=== PATIENT | female | born 2000 | race African-American/Black ===

== ENCOUNTER 2024-08-25 00:56 | Emergency (ER) | payer SELFPAY ==
[2024-08-25] MEDS ORDERED: Ibuprofen 200 MG TAB ONE (01:35)
[2024-08-25 02:04] LABS: Bilirubin Neg (Negative); Blood, Urine 25 (Negative); Clarity Slightly Cloudy (Clear); Glucose, Urine (Dipstick) Normal (Negative); Ketone, Urine Negative (Negative); Leukocyte Negative (Negative); Nitrite Negative (Negative); Protein, Urine (Dipstick) 15 mg/dl (Neg-Trace); Specific Gravity, Urine 1.025 (1.005-1.030); Urobilinogen Normal mg/dL (Less than 2)
[2024-08-25 02:12] LABS: Pregnancy Test - Urine (BHCG) Negative (Negative); Pregu Control Background? CLEAR/WHITE (CLR/WHITE); Pregu Control Bar Appear? YES (CONTROL BAR); Specific Gravity 1.025 (1.002-1.036)
[2024-08-25 02:14] LABS: Bacteria/HPF 1+ HPF (None Seen); CAUTI Indications for Culture Pelvic or flank pain; RBC/HPF 0-3 HPF (0-3); WBC/HPF 0-3 HPF (0-3)
[2024-08-25 02:15] LABS: Mucous/LPF 1+ LPF (<2+)
[2024-08-25 02:16] LABS: Urine Culture Reflex No No
== END 2024-08-25 03:22 | disposition home or self-care (01) ==
LOC: CSHERS 00:56
DX: B34.9 Viral infection, unspecified (principal); Z55.6 Problems related to health literacy
CPT/HCPCS: 81001; 81025; 87428; 99284

== ENCOUNTER 2025-06-08 13:11 | Day surgery (SDC) | payer OTHER ==
[2025-06-08 13:46] VITALS: BMI 22.6
[2025-06-08] MEDS ORDERED: hydrALAZINE 20 MG/ML VIAL SLOW IVP PRN (14:21)
[2025-06-08 15:04] LABS: Glucose, Urine (Dipstick) Normal (Negative); Leukocyte 500 (Negative); Protein, Urine (Dipstick) 15 mg/dl (Neg-Trace); Specific Gravity, Urine 1.010 (1.005-1.030)
[2025-06-08 15:15] LABS: RBC/HPF 0-3 HPF (0-3); Yeast-Budding 1+ HPF (None Seen)
[2025-06-08 15:16] LABS: Bacteria/HPF 2+ HPF (None Seen); Mucous/LPF 3+ LPF (<2+)
[2025-06-08] MEDS: Acetaminophen 500 MG TAB PO SCH (15:44)
== END 2025-06-08 16:50 | disposition home or self-care (01) ==
LOC: CSHLD/OP 13:11
PROVIDERS: ATTEND Obstetrics & Gynecology
DX: O47.03 False labor before 37 completed weeks of gestation, third trimester (principal); O99.891 Other specified diseases and conditions complicating pregnancy; R51.9 Headache, unspecified; O23.593 Infection of other part of genital tract in pregnancy, third trimester; N89.8 Other specified noninflammatory disorders of vagina; B96.89 Other specified bacterial agents as the cause of diseases classified elsewhere; O99.013 Anemia complicating pregnancy, third trimester; D57.3 Sickle-cell trait; O98.813 Other maternal infectious and parasitic diseases complicating pregnancy, third trimester; B37.9 Candidiasis, unspecified; Z3A.36 36 weeks gestation of pregnancy; Z79.899 Other long term (current) drug therapy
CPT/HCPCS: 81003; 81015; 87480; 87510; 87660; 99285

== ENCOUNTER 2025-06-27 15:53 | Day surgery (SDC) | payer OTHER ==
[2025-06-27] MEDS ORDERED: hydrALAZINE 20 MG/ML VIAL SLOW IVP PRN (16:43)
[2025-06-27 16:47] VITALS: BMI 23.6
[2025-06-27] MEDS: Acetaminophen 500 MG TAB PO SCH (17:12)
== END 2025-06-27 17:35 | disposition home or self-care (01) ==
LOC: CSHLD/OP 15:53
PROVIDERS: ATTEND Obstetrics & Gynecology
DX: O47.03 False labor before 37 completed weeks of gestation, third trimester (principal); Z3A.28 28 weeks gestation of pregnancy; Z79.899 Other long term (current) drug therapy
CPT/HCPCS: 99283

== ENCOUNTER 2025-07-04 16:03 | Day surgery (SDC) | payer OTHER ==
[2025-07-04] MEDS ORDERED: hydrALAZINE 20 MG/ML VIAL SLOW IVP PRN (17:12)
[2025-07-04] MEDS ORDERED: Ondansetron PF 4 MG/2 ML Vial IVP SCH (18:00)
== END 2025-07-04 19:30 | disposition home or self-care (01) ==
LOC: CSHLD/OP 16:03
PROVIDERS: ATTEND Family Medicine
DX: O47.1 False labor at or after 37 completed weeks of gestation (principal); O99.891 Other specified diseases and conditions complicating pregnancy; R11.0 Nausea; O23.593 Infection of other part of genital tract in pregnancy, third trimester; N89.8 Other specified noninflammatory disorders of vagina; Z3A.39 39 weeks gestation of pregnancy; Z79.899 Other long term (current) drug therapy

== ENCOUNTER 2025-07-07 18:00 | Inpatient (IN) | payer OTHER ==
[2025-07-07] MEDS ORDERED: hydrALAZINE 20 MG/ML VIAL SLOW IVP PRN (22:14)
[2025-07-07] MEDS ORDERED: Lidocaine 1% (PF) 30 ML VIAL SC PRN (22:14)
[2025-07-07] MEDS ORDERED: Oxytocin 30 units/NS 500 ML 500 ML IV SCH ×3 (22:15)
[2025-07-07] MEDS ORDERED: Ibuprofen 800 MG TAB PO PRN (22:15)
[2025-07-07] MEDS ORDERED: Tranexamic Acid 1,000 MG/10 ML VIAL IVP PRN (22:15)
[2025-07-07] MEDS ORDERED: Methylergonovine 0.2 MG/ML VIAL IM PRN (22:15)
[2025-07-07] MEDS ORDERED: Diphenoxylate HCl/Atropine Tablet PO PRN ×2 (22:15)
[2025-07-07] MEDS ORDERED: Carboprost 250 MCG/ML AMP IM PRN (22:15)
[2025-07-07] MEDS: Acetaminophen 500 MG TAB PO PRN (23:09)
[2025-07-07 23:16] LABS: Hematocrit 30.6 % (34.9-44.5); Hemoglobin 9.6 g/dL (12.0-15.5); Mean Corpuscular Hemoglobin 24.1 pg (27.0-33.0); Mean Corpuscular Volume 76.7 fL (81.6-98.3); Platelet Count 490 10x3/uL (150-450); Red Blood Cell (RBC) Count 3.99 10x6/uL (3.90-5.03); White Blood Cell (WBC) Count 11.17 10x3/uL (3.5-10.5)
[2025-07-07 23:51] LABS: Syphilis Antibody Index 0.07 S/CO (<1.00 Non-Reactive)
[2025-07-07 23:52] LABS: Hep B Surf Ag - L&D Non-Reactive S/CO (NonReactive)
[2025-07-08] MEDS: Ondansetron PF 4 MG/2 ML Vial IVP PRN ×2 (05:37→23:25)
[2025-07-08] MEDS: Acetaminophen 500 MG TAB PO SCH (06:10)
[2025-07-08] MEDS ORDERED: Ondansetron PF 4 MG/2 ML Vial IVP PRN ×2 (12:34→14:06)
[2025-07-08] MEDS ORDERED: diphenhydrAMINE 50 MG/ML VIAL IVP PRN ×2 (12:34→14:06)
[2025-07-08] MEDS ORDERED: Communication Order-Pharmacy FS SCH ×2 (12:45→14:15)
[2025-07-08] MEDS ORDERED: Bicitra 30 ML UDCUP PO PRN (13:32)
[2025-07-08] MEDS ORDERED: Famotidine/PF 20 mg/2ml Vial SLOW IVP PRN (13:32)
[2025-07-08] MEDS: fentaNYL 2 mcg/Ropivacaine 0.2% Epidural 100 ML CADD EPIDURAL SCH (13:39)
[2025-07-08] MEDS ORDERED: Meperidine HCl/PF 25 MG (1 mL) VIAL SLOW IVP PRN (14:06)
[2025-07-08] MEDS ORDERED: Ketorolac Tromethamine 30 MG (1 mL) VIAL IVP SCH (14:15)
[2025-07-08] MEDS ORDERED: hydrALAZINE 20 MG/ML VIAL SLOW IVP PRN (14:19)
[2025-07-08] MEDS ORDERED: Simethicone Chewable 80 MG TAB PO PRN (14:19)
[2025-07-08] MEDS ORDERED: Lanolin Ointment 7 GM TUBE TOP PRN (14:19)
[2025-07-08 14:25] LABS: Analyzer IN Cardio CS NICU
[2025-07-08 14:27] LABS: Analyzer IN Cardio CS NICU; pH (Cord, venous) 7.273 (7.250-7.350)
[2025-07-08] MEDS: Ketorolac Tromethamine 30 MG (1 mL) VIAL IVP PRN (16:30)
[2025-07-08] MEDS: Dexamethasone 10 MG/ML VIAL ONE (17:42)
[2025-07-08] MEDS: fentaNYL/Ropivacaine Epidural 100 ML ONE (17:42)
[2025-07-08] MEDS: Oxytocin 10 UNITS/ML VIAL ONE (17:43)
[2025-07-08] MEDS: Lidocaine 2% MPF 10 ML AMP (For Epidural Use) ONE (17:43)
[2025-07-08] MEDS: CEFAZOLIN 2 GM VIAL ONE (17:43)
[2025-07-08] MEDS: PHENYLEPHRINE-NS 100 MCG/ML 10 ML SYRINGE ONE (17:43)
[2025-07-08] MEDS: Ondansetron PF 4 MG/2 ML Vial ONE (17:43)
[2025-07-08] MEDS: Erythromycin Base 0.5% Oint 1 GM TUBE ONE (17:44)
[2025-07-08] MEDS: Boostrix 0.5 ML (Tdap) VIAL (>/=7 yrs of age) IM ONE (17:50)
[2025-07-08] MEDS: Ferrous Sulfate 325 MG TAB PO SCH (21:51)
[2025-07-09] MEDS ORDERED: HYDROcodone/Acetaminophen 10/325 mg Tablet PO PRN (02:15)
[2025-07-09 05:55] LABS: Hematocrit 24.9 % (34.9-44.5); Hemoglobin 7.6 g/dL (12.0-15.5); Mean Corpuscular Hemoglobin 23.6 pg (27.0-33.0); Mean Corpuscular Volume 77.3 fL (81.6-98.3); Platelet Count 351 10x3/uL (150-450); Red Blood Cell (RBC) Count 3.22 10x6/uL (3.90-5.03); White Blood Cell (WBC) Count 15.92 10x3/uL (3.5-10.5)
[2025-07-09] MEDS: Iron Sucrose Complex 500 MG in Sodium Chloride 0.9% 250 ML 250 ML IVPB SCH (11:09)
[2025-07-09] MEDS: Acetaminophen 500 MG TAB PO SCH (11:10)
[2025-07-09] MEDS: HYDROcodone/Acetaminophen 10/325 mg Tablet PO PRN (12:00)
[2025-07-09] MEDS ORDERED: Lidocaine 2% MPF 10 ML AMP (For Epidural Use) ONE (13:50)
[2025-07-09] MEDS: Acetaminophen 325 MG TAB PO PRN (19:58)
[2025-07-09] MEDS: Ibuprofen 800 MG TAB PO PRN (21:14)
[2025-07-10 04:19] LABS: #Basophils Less than 0.03 10x3/uL (0.0-0.2); #Eosinophils 0.05 10x3/uL (0.0-0.5); #Monocytes 0.88 10x3/uL (0.0-1.1); #Neutrophils 13.31 10x3/uL (1.5-8.4); %Basophils 0.1 % (0.0-2.0); %Eosinophils 0.3 % (0.0-6.0); %Lymphocytes 13.4 % (18.0-47.0); %Monocytes 5.3 % (0.0-10.0); %Neutrophils 79.8 % (40.0-75.0); Hematocrit 24.3 % (34.9-44.5); Hemoglobin 7.4 g/dL (12.0-15.5); Mean Corpuscular Hemoglobin 23.9 pg (27.0-33.0); Mean Corpuscular Volume 78.4 fL (81.6-98.3); Platelet Count 348 10x3/uL (150-450); Red Blood Cell (RBC) Count 3.10 10x6/uL (3.90-5.03); White Blood Cell (WBC) Count 16.69 10x3/uL (3.5-10.5)
[2025-07-11 07:03] LABS: #Basophils Less than 0.03 10x3/uL (0.0-0.2); #Eosinophils 0.07 10x3/uL (0.0-0.5); #Monocytes 1.08 10x3/uL (0.0-1.1); #Neutrophils 13.86 10x3/uL (1.5-8.4); %Basophils 0.1 % (0.0-2.0); %Eosinophils 0.4 % (0.0-6.0); %Lymphocytes 13.7 % (18.0-47.0); %Monocytes 6.1 % (0.0-10.0); %Neutrophils 77.8 % (40.0-75.0); Hematocrit 22.4 % (34.9-44.5); Hemoglobin 6.9 g/dL (12.0-15.5); Mean Corpuscular Hemoglobin 24.4 pg (27.0-33.0); Mean Corpuscular Volume 79.2 fL (81.6-98.3); Platelet Count 368 10x3/uL (150-450); Red Blood Cell (RBC) Count 2.83 10x6/uL (3.90-5.03); White Blood Cell (WBC) Count 17.80 10x3/uL (3.5-10.5)
[2025-07-11 08:29] LABS: Glucose, Urine (Dipstick) Normal (Negative); Leukocyte Negative (Negative); Protein, Urine (Dipstick) Negative (Neg-Trace); Specific Gravity, Urine 1.010 (1.005-1.030)
[2025-07-11 10:13] LABS: Bacteria/HPF None Seen HPF (None Seen); CAUTI Indications for Culture Pelvic or flank pain; RBC/HPF 0-3 HPF (0-3); Urine Culture Reflex No No; WBC/HPF 0-3 HPF (0-3)
[2025-07-11 15:45] VITALS: TEMP 98.1
[2025-07-11 15:46] VITALS: BP 121/65
[2025-07-11 16:52] LABS: Hematocrit 27.9 % (34.9-44.5); Hemoglobin 8.7 g/dL (12.0-15.5); Mean Corpuscular Hemoglobin 25.8 pg (27.0-33.0); Mean Corpuscular Volume 82.8 fL (81.6-98.3); Platelet Count 378 10x3/uL (150-450); Red Blood Cell (RBC) Count 3.37 10x6/uL (3.90-5.03); White Blood Cell (WBC) Count 18.66 10x3/uL (3.5-10.5)
== END 2025-07-11 17:15 | disposition home or self-care (01) | DRG 787 ==
LOC: UNDOADMIN 20:55 → EDUNIT# 20:55 → CSHNSY 20:55 → CSHLD 20:55 → CSHPP 07-08 17:30
PROVIDERS: ADMIT Obstetrics & Gynecology; ATTEND Family Medicine
PROC: 10D00Z1 Extraction of Products of Conception, Low, Open Approach (ICD-10-PCS; principal; 2025-07-08)
PROC: 0U7C7ZZ Dilation of Cervix, Via Natural or Artificial Opening (ICD-10-PCS; 2025-07-08)
PROC: 30233N1 Transfusion of Nonautologous Red Blood Cells into Peripheral Vein, Percutaneous Approach (ICD-10-PCS; 2025-07-11)
DX: O48.0 Post-term pregnancy (principal); O99.835 Other infection carrier state complicating the puerperium; O43.893 Other placental disorders, third trimester; Z3A.40 40 weeks gestation of pregnancy; Z37.0 Single live birth; O99.02 Anemia complicating childbirth; D64.9 Anemia, unspecified; D57.3 Sickle-cell trait; D72.829 Elevated white blood cell count, unspecified
CPT/HCPCS: 36415; 36430; 51702; 81001; 82805; 85025; 85027; 86780; 86850; 86900; 86901; 87340; J0665; J1100; J1756; J1885; J2250; J2274; J2405; J2590; J3010; J3105; J7050; J7120; P9016

== ENCOUNTER 2025-09-07 22:54 | Emergency (ER) | payer OTHER ==
[2025-09-07 23:58] LABS: Glucose, Urine (Dipstick) Normal (Negative); Leukocyte 500 (Negative); Protein, Urine (Dipstick) 15 mg/dl (Neg-Trace); Specific Gravity, Urine 1.010 (1.005-1.030)
[2025-09-08] LABS: #Basophils 0.03 10x3/uL (0.0-0.2); #Eosinophils 0.09 10x3/uL (0.0-0.5); #Monocytes 0.47 10x3/uL (0.0-1.1); #Neutrophils 3.54 10x3/uL (1.5-8.4); %Basophils 0.5 % (0.0-2.0); %Eosinophils 1.4 % (0.0-6.0); %Lymphocytes 34.5 % (18.0-47.0); %Monocytes 7.4 % (0.0-10.0); %Neutrophils 56.0 % (40.0-75.0); Hematocrit 34.7 % (34.9-44.5); Hemoglobin 11.3 g/dL (12.0-15.5); Mean Corpuscular Hemoglobin 27.5 pg (27.0-33.0); Mean Corpuscular Volume 84.4 fL (81.6-98.3); Platelet Count 434 10x3/uL (150-450); Red Blood Cell (RBC) Count 4.11 10x6/uL (3.90-5.03); White Blood Cell (WBC) Count 6.32 10x3/uL (3.5-10.5)
[2025-09-08 00:11] LABS: RBC/HPF Greater than 50 HPF (0-3)
[2025-09-08 00:12] LABS: Bacteria/HPF Rare-Few HPF (None Seen); CAUTI Indications for Culture Acute Hematuria; Mucous/LPF 1+ LPF (<2+)
[2025-09-08 00:12] LABS: BHCG - Serum POSITIVE (NEGATIVE); Pregs Control Background? CLEAR/WHITE (CLR/WHITE); Pregs Control Bar Appear? YES (CONTROL BAR)
[2025-09-08 00:13] LABS: Urine Culture Reflex No No
[2025-09-08 00:16] LABS: ALT (SGPT) 7 U/L (Less than 34); AST (SGOT) 18 U/L (11-34); Albumin 3.7 g/dL (3.1-4.5); Alkaline Phosphatase 54 U/L (40-110); Anion Gap 13 mmol/L (10-20); BUN (Urea Nitrogen) 10 mg/dL (7.0-18.7); Bilirubin, Total 0.2 mg/dL (0.3-1.2); Calc. Creatinine Clearance 0 mL/min (70-130); Calcium 9.0 mg/dL (7.8-10.44); Carbon Dioxide 22 mmol/L (22-29); Chloride 109 mmol/L (98-107); Globulin 2.8 g/dL (2.4-3.5); Glucose 88 mg/dL (70-105); Potassium 3.5 mmol/L (3.5-5.1); Sodium 140 mmol/L (136-145)
== END 2025-09-08 01:05 | disposition home or self-care (01) ==
LOC: CSHERS 22:54
DX: O20.0 Threatened abortion (principal); Z3A.00 Weeks of gestation of pregnancy not specified
CPT/HCPCS: 76856; 80053; 81001; 84702; 84703; 85025; 86850; 86900; 86901